=== PATIENT | female | born 1955 | race Caucasian/White ===

== ENCOUNTER 2023-07-24 09:23 | Emergency (ER) | payer OTHER ==
[2023-07-24] MEDS ORDERED: Lidocaine 1% (PF) 30 ML VIAL ONE (09:51)
[2023-07-24] MEDS ORDERED: Acetaminophen 500 MG TAB ONE (10:34)
[2023-07-24] MEDS ORDERED: Boostrix 0.5 ML (Tdap) VIAL (>/=7 yrs of age) ONE (10:34)
== END 2023-07-24 11:11 | disposition home or self-care (01) ==
LOC: NAV ERS 09:23
DX: S01.112A Laceration without foreign body of left eyelid and periocular area, initial encounter (principal); W27.1XXA Contact with garden tool, initial encounter; Y92.017 Garden or yard in single-family (private) house as the place of occurrence of the external cause; Z23 Encounter for immunization
CPT/HCPCS: 12013; 90471; 90715; J2001

== ENCOUNTER 2023-08-03 13:59 | Emergency (ER) | payer OTHER | END 2023-08-03 14:37 | disposition home or self-care (01) | LOC: NAV ERS 13:59 | DX: S01.81XD Laceration without foreign body of other part of head, subsequent encounter (principal); W26.8XXD Contact with other sharp object(s), not elsewhere classified, subsequent encounter ==